=== PATIENT | male | born 1990 | race Caucasian/White ===

== ENCOUNTER 2025-03-08 15:47 | Outpatient (AMB) | payer OTHER, SELFPAY ==
--- NOTE | 2025-03-08 15:57 | MHC.OFFVIS ---
Vital Signs 03/08/25 15:58 Weight 200 lb BP 130/70 Pulse 94 Pulse Oximetry (%) 97 Intake Visit Reasons: MAT Intake Allergies No Known Allergies Allergy (Verified 03/08/25 15:59) HPI Comments Details: A 35 year old male presents for a MAT intake r/t HE. Reports using heroin and opiate type pills bought on the streets which he believes contain fentanyl. Acknowledges having experience with buprenorphine-naloxone and induction protocol, including waiting 12-16 hours for opiates and up to 24 hours since last fentanyl use before starting on buprenorphine-naloxone. The patient states I want to stop using don't know what's in these pills. Review of Systems Const All systems reviewed & are unremarkable except as noted in HPI and below Physical Exam Vital Signs: Last Vital Signs Pulse 94 03/08/25 15:58 BP 130/70 03/08/25 15:58 Pulse Ox 97 03/08/25 15:58 Const General: cooperative Results AMB 14 Panel Urine Drug Screen Urine Marijuana (THC) Negative Last Edit by Saurabh Guan CMA on 03/08/25 16:37 Urine Cocaine Positive Last Edit by Saurabh Guan CMA on 03/08/25 16:37 Urine Morphine Positive Last Edit by Saurabh Guan CMA on 03/08/25 16:37 Urine Methamphetamine Positive Last Edit by Saurabh Guan CMA on 03/08/25 16:37 Urine Amphetamine Negative Last Edit by Saurabh Guan CMA on 03/08/25 16:37 Urine Benzodiazepine Positive Last Edit by Saurabh Guan CMA on 03/08/25 16:37 Urine Barbiturates Negative Last Edit by Saurabh Guan CMA on 03/08/25 16:37 Urine Methadone Negative Last Edit by Saurabh Guan CMA on 03/08/25 16:37 Urine Buprenorphine Negative Last Edit by Saurabh Guna CMA on 03/08/25 16:37 Urine Tricyclic Antidepressant Negative Last Edit by Saurabh Guan CMA on 03/08/25 16:37 Urine MDMA Negative Last Edit by Saurabh Guan CMA on 03/08/25 16:37 Urine Oxycodone Negative Last Edit by Saurabh Guan CMA on 03/08/25 16:37 Urine Phencyclidine Negative Last Edit by Saurabh Guan CMA on 03/08/25 16:37 Urine Propoxyphene Negative Last Edit by Saurabh Guan CMA on 03/08/25 16:37 Results Reviewed Results Reviewed: Laboratory Last Values POC Urine Buprenorphine Negative 03/08/25 16:34 POC Urine Morphine Positive 03/08/25 16:34 POC Urine Oxycodone Negative 03/08/25 16:34 POC Urine Methadone Negative 03/08/25 16:34 POC Urine Propoxyphene Negative 03/08/25 16:34 POC Urine Barbiturates Negative 03/08/25 16:34 POC U Tricyclic Antidpr Negative 03/08/25 16:34 POC Urine PCP Negative 03/08/25 16:34 POC Ur Amphetamines Negative 03/08/25 16:34 POC Ur Methamphetamine Positive 03/08/25 16:34 POC Urine MDMA Negative 03/08/25 16:34 POC Ur Benzodiazepine Positive 03/08/25 16:34 POC Urine Cocaine Positive 03/08/25 16:34 POC Ur Marijuana (THC) Negative 03/08/25 16:34 Assessment & Plan Assessment & Plan (1) Substance use disorder: Code(s): F19.90 - Other psychoactive substance use, unspecified, uncomplicated Category: Medical Plan The plan of care is to start on buprenorphine-naloxone after waiting a minimum of 24 hours since last fentanyl use to prevent precipitated withdrawals. Narcan kit provided. Education provided re: Buprenorphine-naloxone including purpose, general medication information, side effects and preventing precipitated withdrawals. Follow-up in 2 days or sooner if needed. Orders: Orders AMB 14 Panel Urine Drug Screen Today Z51.81 - Encounter for therapeutic drug level monitoring Medications: New buprenorphine-naloxone 8-2 mg (Suboxone) One film sublingually twice per day 1 film sublingual BID 4 ea 0RF 2 days Patient Instructions: - Start on buprenorphine-naloxone after waiting a minimum of 24 hours since last fentanyl use. - Narcan kit provided. - Follow-up in 2 days or sooner if needed. - Call with questions, concerns, or to report side effects/new onset of symptoms to [facility]. - The patient verbalized understanding and agreed with plan of care. Coding Level of Care Code New Pt Level 3 (46038) Diagnoses Substance use disorder F19.90 MAT Intake Nursing Intake Reason for visit: MAT intake Are you currently using?: Yes What are you taking?: heroin/fentanyl When was your last use?: this morning How much?: 2 bags What is your source of income?: currently unemployed What is your current relationship status?: significant other Current PCP: none Referral Source: other clinic patient Substance Abuse History Substance Abuse History (includes route, frequency and quantity): Heroin, Fentanyl (current 15 years ), Buprenorphine/naloxone (SL Suboxone and Subutex- rx off street about 4 years of use), Methadone (brief use off street), Oxycodone product, Cocaine, Benzodiazepines, Other opioids, Alcohol (rarely), Amphetamines, Marijuana (occasional), Kratum and Tobacco (nicotine vape) Social History Domestic Violence concerns: no Children: none Do you have a support system?: yes, girlfriend and mom Current mode of transportation?: others Where are you currently residing?: girlfriend/mom [facility] LMP: N/A IV Drug Use Have you ever shared needles?: No Have you ever belonged to a needle exchange program?: No Do you buy needles at a pharmacy?: No Have you ever overdosed?: Yes Number of lifetime overdoses: 4 Have you ever been hospitalized for an overdose?: No Was Naloxone administered?: Yes Recovery History What is your longest time in recovery?: 4 years on Buprenorphine with stimulant use When was the last time you were in recovery?: about 3 years ago Have you ever had inpatient treatment for your substance abuse disorder?: No Have you been in an inpatient detoxification program?: Yes Have you been in an inpatient Rehab/Senior Living house?: No Have you been in an outpatient Methadone Maintenance program?: No Have you been in an outpatient Suboxone Maintenance program?: No Have you been in an AA/NA support program?: Yes Have you had a Recovery Support Dielectric Tester?: No (not at the moment, will update when ready to pursue) Have you had Peer Support?: No Behavioral Health History Do you have a current provider? If so, who?: no diagnosis: self diagnosed depression, anxiety, PTSD, diagnosed with ADD as child History of other addictive behavior: some gambling History of inpatient psychiatric hospitalization? If so, how many? Most Recent? Where?: 3, self/voluntary admit in [place]. History of self harming thoughts?: Yes (many years ago) History of homicidal or suicidal intentions?: Yes (several years ago ) Medical Conditions Endocarditis?: No Skin Infection: No Seizure related to withdrawal or overdose: No Head or brain injury: No Hepatitis A (if yes, have you been treated?): No Hepatitis B (if yes, have you been treated?): No Hepatitis C (if yes, have you been treated?): No HIV (if yes, have you been treated?): No TB (if yes, have you been treated?): No Other: No Legal History History of incarceration: Yes (DUI- 17 years ago) Currently on parole or probation: No Court mandated programs: No Pending court cases: No DCF involvement: No Details: Working on classes to regain license through [facility]
[2025-03-08 15:58] VITALS: BP 130/70; PULSE 94; O2SAT 97
== END 2025-03-08 16:58 | disposition home or self-care (01) ==
PROVIDERS: Visit Provider Clinical Nurse Specialist Psychiatric/Mental Health
DX: Z51.81 Encounter for therapeutic drug level monitoring (principal); F19.90 Other psychoactive substance use, unspecified, uncomplicated
CPT/HCPCS: 99203

== ENCOUNTER → 2025-03-08 15:47 | Outpatient (BNVA) | payer OTHER, SELFPAY | PROVIDERS: Visit Provider Clinical Nurse Specialist Psychiatric/Mental Health | DX: F19.90 Other psychoactive substance use, unspecified, uncomplicated (principal); Z51.81 Encounter for therapeutic drug level monitoring | CPT/HCPCS: 80307; 99202 ==

== ENCOUNTER 2025-03-10 10:59 | Outpatient (AMB) | payer OTHER, SELFPAY ==
--- NOTE | 2025-03-10 11:04 | MHC.OFFVIS ---
Vital Signs 03/10/25 11:05 BP 122/70 Pulse 94 Pulse Oximetry (%) 98 Intake Visit Reasons: MAT Allergies No Known Allergies Allergy (Verified 03/10/25 11:05) HPI Comments Details: A 35-year-old male presents for a follow-up r/t HE and reports waiting over 24 hours since last fentanyl use before initiating treatment with buprenorphine-naloxone. Denies use of opiates, alcohol, and other substances within the previous 24 hours. Reports the current dose of buprenorphine-naloxone 8-2 mg BID is not preventing severe cravings and therefore is requesting an increase. T/w explained due to recent induction and previous fentanyl use 24 hours prior it is not abnormal to experince cravings. Review of Systems Const All systems reviewed & are unremarkable except as noted in HPI and below Physical Exam Vital Signs: Last Vital Signs Pulse 94 03/10/25 11:05 BP 122/70 03/10/25 11:05 Pulse Ox 98 03/10/25 11:05 Const General: cooperative Assessment & Plan Assessment & Plan (1) Substance use disorder: Code(s): F19.90 - Other psychoactive substance use, unspecified, uncomplicated Category: Medical Plan The plan of care is to increase the dose of buprenorphine-naloxone from 8-2 mg BID to TID to assist in decreasing opioid cravings. Encouraged to follow-up with community resources and follow-up in 5 days or sooner if needed. Medications: Changed From buprenorphine-naloxone 8-2 mg (Suboxone) One film sublingually twice per day 1 film sublingual BID 2 days 4 ea 0RF To buprenorphine-naloxone 8-2 mg (Suboxone) One film sublingually 3 times per day 1 film sublingual TID 21 ea 0RF 7 days Patient Instructions: - Continue with the increased dose of buprenorphine-naloxone as prescribed. - Encouraged to follow-up with community resources. - Follow-up in 5 days or sooner if needed. - Call with questions, concerns, or to report side effects/new onset of symptoms to [facility]3]. - The patient verbalized understanding and agreed with plan of care. Coding Level of Care Code Est Pt Level 3 (24939) Diagnoses Substance use disorder F19.90
[2025-03-10 11:05] VITALS: BP 122/70; PULSE 94; O2SAT 98
--- OUTSIDE RECORDS SUMMARY | 2025-03-10 16:41 | XMS_ITS ---
Author Name [facility] Organization Unknown Care Team Organization Name Specialty Phone Email Start Date End Da te [facility] Primary [facility] 02/26/2022 12/08/2023
== END 2025-03-10 11:16 | disposition home or self-care (01) ==
LOC: HO.HCC 10:59
PROVIDERS: Visit Provider Clinical Nurse Specialist Psychiatric/Mental Health
DX: F19.90 Other psychoactive substance use, unspecified, uncomplicated (principal)
CPT/HCPCS: 99213

== ENCOUNTER → 2025-03-10 10:59 | Outpatient (BNVA) | payer OTHER, SELFPAY | PROVIDERS: Visit Provider Clinical Nurse Specialist Psychiatric/Mental Health | DX: F19.90 Other psychoactive substance use, unspecified, uncomplicated (principal) | CPT/HCPCS: 99212 ==

== ENCOUNTER 2025-03-15 11:09 | Outpatient (AMB) | payer OTHER, SELFPAY ==
--- NOTE | 2025-03-15 11:16 | A.OFFVIS_ITS ---
Vital Signs 03/15/25 11:17 BP 100/60 Pulse 80 Pulse Oximetry (%) 97 Intake Visit Reasons: MAT Allergies No Known Allergies Allergy (Verified 03/15/25 11:17) HPI Comments Details: A 35-year-old male presents for a follow-up visit r/t E[facility] and reports 6 days of sobriety with buprenorphine-naloxone 8-2 mg TID. The patient is requesting Zubsolv due to severe dental sensitivity with the films. Denies use of opiates, acknowledges intermittent use of alcohol and daily cannabis use. 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 Acknowledges connected to a mental health provider, although is not happy with services as the provider did not prescribe what he requested. Review of Systems Const All systems reviewed & are unremarkable except as noted in HPI and below Physical Exam Vital Signs: Last Vital Signs Pulse 80 03/15/25 11:17 BP 100/60 03/15/25 11:17 Pulse Ox 97 03/15/25 11:17 Const General: cooperative Assessment & Plan Assessment & Plan (1) Substance use disorder: Code(s): F19.90 - Other psychoactive substance use, unspecified, uncomplicated Category: Medical Plan The plan of care is to continue with buprenorphine-naloxone 8-2 mg TID, pending insurance approval for Zubsolv. Education provided risk reduction activities to minimize cannabis and alcohol use. Encouraged to follow-up with mental health provider to discuss concerns and continue with services. Peer production recovery operator referral declined by patient at present time. Follow-up in 2 weeks or sooner if needed. Medications: New buprenorphine-naloxone 8.6-2.1 mg (Zubsolv) One tablet sublingually twice per day 1 tab sublingual BID 28 tabs 0RF 14 days naloxone 4 mg/actuation (Narcan) spray 1 dose into ONE nostril; alternate nostrils w each dose until help arrives 1 spray intranasal Q2M 2 ea 0RF Changed From buprenorphine-naloxone 8-2 mg (Suboxone) One film sublingually 3 times per day 1 film sublingual TID 7 days 21 ea 0RF To buprenorphine-naloxone 8-2 mg (Suboxone) One film sublingually 3 times per day 1 film sublingual TID 42 packets 0RF 14 days Patient Instructions: - Continue with buprenorphine-naloxone films as prescribed. - Engage in risk reduction activities to minimize cannabis and alcohol use. - Encouraged to follow-up with mental health provider. - Follow-up in 14 days or sooner if needed. - Call with questions, concerns, or to report side effects/new onset of symptoms to [facility]. - The patient verbalized understanding and agreed with plan of care. Coding Level of Care Code Est Pt Level 3 (13016) Diagnoses Substance use disorder F19.90
[2025-03-15 11:17] VITALS: BP 100/60; PULSE 80; O2SAT 97
== END 2025-03-15 12:58 | disposition home or self-care (01) ==
LOC: HO.HCC 11:09
PROVIDERS: Visit Provider Clinical Nurse Specialist Psychiatric/Mental Health
DX: F19.90 Other psychoactive substance use, unspecified, uncomplicated (principal)
CPT/HCPCS: 99213

== ENCOUNTER → 2025-03-15 11:09 | Outpatient (BNVA) | payer OTHER, SELFPAY | PROVIDERS: Visit Provider Clinical Nurse Specialist Psychiatric/Mental Health | DX: F19.90 Other psychoactive substance use, unspecified, uncomplicated (principal) | CPT/HCPCS: 99212 ==

== ENCOUNTER 2025-03-29 14:30 | Outpatient (AMB) | payer OTHER, SELFPAY ==
[2025-03-29 14:45] VITALS: BP 116/66; PULSE 86; O2SAT 98
--- NOTE | 2025-03-29 14:45 | A.OFFVISCC_ITS ---
Vital Signs 03/29/25 14:45 Height 6 ft BP 116/66 Pulse 86 Pulse Oximetry (%) 98 Intake Visit Reasons: MAT Allergies No Known Allergies Allergy (Verified 03/29/25 14:47) HPI Comments Details: A 35 year old male presents for a follow up visit r/t HE and continues with buprenorphine-naloxone 8-2 mg TID. Reports using cocaine one time and denies opiates, and alcohol use. He is requesting Zubsolv due to teeth sensitivity with films. Review of Systems Const All systems reviewed & are unremarkable except as noted in HPI and below Physical Exam Vital Signs: Last Vital Signs Pulse 86 03/29/25 14:45 BP 116/66 03/29/25 14:45 Pulse Ox 98 03/29/25 14:45 Const General: cooperative Results AMB 14 Panel Urine Drug Screen Urine Marijuana (THC) Positive Last Edit by Betzy Mcbride RN on 03/29/25 15: 48 Urine Cocaine Positive Last Edit by Betzy Mcbride RN on 03/29/25 15:48 Urine Morphine Negative Last Edit by Betzy Mcbride RN on 03/29/25 15:48 Urine Methamphetamine Negative Last Edit by Betzy Mcbride RN on 03/29/25 15: 48 Urine Amphetamine Negative Last Edit by Betzy Mcbride RN on 03/29/25 15:48 Urine Benzodiazepine Negative Last Edit by Betzy Mcbride RN on 03/29/25 15:4 8 Urine Barbiturates Negative Last Edit by Betzy Mcbride RN on 03/29/25 15:48 Urine Methadone Negative Last Edit by Betzy Mcbride RN on 03/29/25 15:48 Urine Buprenorphine Positive Last Edit by Betzy Mcbride RN on 03/29/25 15:48 Urine Tricyclic Antidepressant Positive Last Edit by Betzy Mcbride RN on 03/29/25 15:48 Urine MDMA Negative Last Edit by Betzy Mcbride RN on 03/29/25 15:48 Urine Oxycodone Negative Last Edit by Betzy Mcbride RN on 03/29/25 15:48 Urine Phencyclidine Negative Last Edit by Betzy Mcbride RN on 03/29/25 15:48 Urine Propoxyphene Negative Last Edit by Betzy Mcbride RN on 03/29/25 15:48 Results Reviewed Results Reviewed: Laboratory Last Values POC Urine Buprenorphine Positive 03/29/25 15:41 POC Urine Morphine Negative 03/29/25 15:41 POC Urine Oxycodone Negative 03/29/25 15:41 POC Urine Methadone Negative 03/29/25 15:41 POC Urine Propoxyphene Negative 03/29/25 15:41 POC Urine Barbiturates Negative 03/29/25 15:41 POC U Tricyclic Antidpr Positive 03/29/25 15:41 POC Urine PCP Negative 03/29/25 15:41 POC Ur Amphetamines Negative 03/29/25 15:41 POC Ur Methamphetamine Negative 03/29/25 15:41 POC Urine MDMA Negative 03/29/25 15:41 POC Ur Benzodiazepine Negative 03/29/25 15:41 POC Urine Cocaine Positive 03/29/25 15:41 POC Ur Marijuana (THC) Positive 03/29/25 15:41 Assessment & Plan Assessment & Plan (1) Substance use disorder: Code(s): F19.90 - Other psychoactive substance use, unspecified, uncomplicated Category: Medical Plan The plan of care is to continue with buprenorphine-naloxone 8-2 mg TID and follow-up in 1 week or sooner if needed. Zubsolv 8.6 mg BID ordered pending insurance approval. Orders: Orders AMB 14 Panel Urine Drug Screen Today F19.90 - Other psychoactive substance use, unspecified, uncomplicated Medications: Changed From buprenorphine-naloxone 8-2 mg (Suboxone) One film sublingually 3 times per day 1 film sublingual TID 14 days 42 packets 0RF To buprenorphine-naloxone 8-2 mg (Suboxone) One film sublingually 3 times per day 1 film sublingual TID 21 packets 0RF 7 days Patient Instructions: - Continue with buprenorphine-naloxone as ordered. - Engage in risk reduction activities to minimize/cessation of cocaine use. - Zubsolv ordered pending insurance approval. - Follow-up in 1 week or sooner if needed. - Call with questions, concerns, or to report side effects/new onset of symptoms to [facility]. - The patient verbalized understanding and agreed with plan of care.
== END 2025-03-29 15:49 | disposition home or self-care (01) ==
LOC: HO.HCC 14:30
PROVIDERS: Visit Provider Clinical Nurse Specialist Psychiatric/Mental Health
DX: F19.90 Other psychoactive substance use, unspecified, uncomplicated (principal)
CPT/HCPCS: 99213

== ENCOUNTER → 2025-03-29 14:30 | Outpatient (BNVA) | payer OTHER, SELFPAY | PROVIDERS: Visit Provider Clinical Nurse Specialist Psychiatric/Mental Health | DX: F19.20 Other psychoactive substance dependence, uncomplicated (principal); Z79.899 Other long term (current) drug therapy | CPT/HCPCS: 80307; 99212 ==

== ENCOUNTER 2025-04-12 15:10 | Outpatient (AMB) | payer OTHER, SELFPAY ==
--- NOTE | 2025-04-12 15:23 | MHC.AM.SUB ---
Vital Signs 04/12/25 15:24 BP 118/78 Blood Pressure Location Rt brachial Position Sitting Intake Visit Reasons: MAT Allergies No Known Allergies Allergy (Verified 03/29/25 14:47) Medication List - Last Reconciled 04/12/25 by AMANDA Kelly alprazolam (Xanax) 0.25 mg PO DAILY buprenorphine-naloxone 8-2 mg (Suboxone) 1 film sublingual TID 7 days naloxone 4 mg/actuation (Narcan) 1 spray intranasal Q2M HPI Comments Details: A 35-year-old male presents for a follow-up visit r/t HE, in early remission with buprenorphine-naloxone 8-2 mg TID. Denies use of opiates, alcohol, and other substances. Reports feeling happy as he was able to start a new job and this is keeping him busy and motivated. Review of Systems Const All systems reviewed & are unremarkable except as noted in HPI and below Physical Exam Vital Signs: Last Vital Signs BP 118/78 04/12/25 15:24 Const General: cooperative Assessment & Plan Assessment & Plan (1) Substance use disorder: Code(s): F19.90 - Other psychoactive substance use, unspecified, uncomplicated Category: Medical Plan The plan of care is to continue on buprenorphine-naloxone 8-2 mg tabs TID. Encouraged to follow-up with community services for additional support during recovery process. Follow-up and 6 weeks or sooner if needed. Medications: New buprenorphine-naloxone 8-2 mg One tablet sublingually 3 times per day 1 tab sublingual TID 135 tabs 0RF 45 days Patient Instructions: - Continue with buprenorphine-naloxone as prescribed. - Follow up with community resources for additional support. - Follow up in 6 weeks or sooner if needed. - Call with questions, concerns, or to report side effects/new onset of symptoms to [facility]. - The patient verbalized understanding and agreed with plan of care.
[2025-04-12 15:24] VITALS: BP 118/78
== END 2025-04-12 15:29 | disposition home or self-care (01) ==
LOC: HO.HCC 15:10
PROVIDERS: Visit Provider Clinical Nurse Specialist Psychiatric/Mental Health
DX: F19.90 Other psychoactive substance use, unspecified, uncomplicated (principal)
CPT/HCPCS: 99213

== ENCOUNTER → 2025-04-12 15:10 | Outpatient (BNVA) | payer OTHER, SELFPAY | PROVIDERS: Visit Provider Clinical Nurse Specialist Psychiatric/Mental Health | DX: F19.90 Other psychoactive substance use, unspecified, uncomplicated (principal); Z79.891 Long term (current) use of opiate analgesic | CPT/HCPCS: 99212 ==